=== PATIENT | male | born 1980 | race Caucasian/White ===

== ENCOUNTER 2021-04-07 22:57 | Emergency (ER) | payer OTHER ==
[~2021-04-07] VITALS: Ht 177.8 cm; Wt 88.0 kg
[2021-04-08] MEDS ORDERED: SODIUM CHLORIDE 0.9% 1,000ML IVBOLUS ONE
[2021-04-08 00:17] LABS: BASOPHILS % (AUTO) 0 % (0-1); EOSINOPHILS % (AUTO) 0 % (1-7); LYMPHOCYTES % (AUTO) 9 % (22-44); MEAN CORPUSCULAR HEMOGLOBIN 30.9 pg (27.5-34.5); MEAN PLATELET VOLUME 7.8 fL (7.4-10.4); MONOCYTES % (AUTO) 9 % (2-9); NEUTROPHILS % (AUTO) 82 % (42-75); PLATELET COUNT 244 x10^3/uL (130-400); RED BLOOD COUNT 4.46 x10^6/uL (4.38-5.82); RED CELL DISTRIBUTION WIDTH 13.2 % (9.4-14.8)
[2021-04-08] MEDS ORDERED: ZIPRASIDONE 20 MG INJ IM ONE ×2 (00:53→01:00)
[2021-04-08] MEDS ORDERED: PLEASE ENTER ALLERGIES MC SCH (01:00)
--- NOTE | 2021-04-08 01:20 | NUR ---
- MOTHER FOR UPDATES
[2021-04-08 02:20] LABS: AMPHETAMINE SCREEN, URINE Positive (Negative); BARBITURATE SCREEN, URINE Negative (Negative); BENZODIAZEPINE SCREEN, URINE Positive (Negative); CANNABINOID SCREEN, URINE Positive (Negative); COCAINE SCREEN, URINE Negative (Negative); METHADONE SCREEN, URINE Negative (Negative); OPIATE SCREEN, URINE Negative (Negative)
--- NOTE | 2021-04-08 05:30 | NUR ---
PATIENT STILL LYING IN BED COMFORTABLY SLEEPING. PATIENT IN NO ACUTE DISTRESS AT THIS TIME. VSS.
--- NOTE | 2021-04-08 07:14 | NUR ---
PT RESTING CALMLY IN BED AT THIS TIME WITH EYES CLOSED. NO STATED NEEDS CURRENTLY. WILL CONTINUE TO MONITOR. VSS, SEE CHARTED
--- NOTE | 2021-04-08 08:33 | NUR ---
PT RESTING CALMLY IN BED AT THIS TIME WITH EYES CLOSED. NO STATED NEEDS CURRENTLY. WILL CONTINUE TO MONITOR.
--- NOTE | 2021-04-08 09:26 | NUR ---
Alyssa (ex-girlfriend) can be contacted when he is ready for D/C [phone]
--- NOTE | 2021-04-08 10:25 | NUR ---
PT ABLE TO AMBULATE STEADILY IN HALLWAY. PT GIRLFRIEND CALLED TO GIVE PT A RIDE HOME. DORYS STATED SHE HAS TO GO [employer] HIS CAR. WILL GIVE PT A [employer] FOR [employer] TRANSPORT HOME.
[2021-04-08 10:51] VITALS: BP 114/68
== END 2021-04-08 10:53 | disposition home or self-care (01) ==
LOC: ED 23:59
DX: R41.82 Altered mental status, unspecified (principal); G92 Toxic encephalopathy; F15.121 Other stimulant abuse with intoxication delirium; F15.150 Other stimulant abuse with stimulant-induced psychotic disorder with delusions
CPT/HCPCS: 36415; 70450; 80053; 80299; 80307; 80320; 80329; 85025; 96360; 96372; 99285; J3486; J7030; G0480